=== PATIENT | female | born 1990 | race Two or more races ===

== ENCOUNTER 2016-08-11 15:31 | Emergency (ER) | payer MEDICAID ==
[~2016-08-11] VITALS: Ht 162.6 cm; Wt 72.6 kg
[2016-08-11 15:41] VITALS: BP 144/94
[2016-08-11 17:44] LABS: Urine Bilirubin Negative (Negative); Urine Blood Negative /uL (Negative); Urine Color Yellow (Yellow); Urine Glucose Normal (Normal); Urine Ketone Negative (Negative); Urine Nitrite Negative (Negative); Urine RBC <1 /hpf (0 - 4); Urine Squamous Epithelial Cell FEW /hpf (<5); Urine Urobilinogen Normal (Negative)
[2016-08-11 20:32] LABS: Basophils # (auto) 0 uL; Basophils % (auto) 0.2 % (0.0-2.0); CONDITION AutoValidated; Eosinophils # (auto) 0.1 uL; Eosinophils % (auto) 0.8 % (0.0-7.0); Hematocrit 37.3 % (36.0-46.0); Hemoglobin 12.3 g/dL (12.2-16.2); Lymphocytes # (auto) 1.1 uL; Lymphocytes % (auto) 12.8 % (10.0-50.0); Mean Corpuscular Hemoglobin 28.9 pg (28.0-32.0); Mean Corpuscular Volume 87.5 fL (80.0-100.0); Mean Platelet Volume 11.5 fL (7.4-10.4); Monocytes # (auto) 0.7 uL; Monocytes % (auto) 7.5 % (0.0-12.0); Neutrophils # (auto) 7.1 uL; Neutrophils % (auto) 78.7 % (37.0-80.0); Platelet Count (auto) 174 10^3/uL (140-450); Red Cell Distribution Width 13.6 % (11.6-16.0); SUSPECT SEE PRINTOUT
[2016-08-11 21:09] LABS: BUN/Creatinine Ratio 9.4; Bilirubin, Total 0.2 mg/dL (0.2-1.0); Calcium 8.4 mg/dL (8.5-10.1); Total Protein 6.7 g/dL (6.4-8.2)
[2016-08-11 21:44] LABS: Giant Platelets Few; Platelet Estimate Adequate
== END 2016-08-12 00:05 | disposition left against medical advice (07) ==
LOC: ER 15:36
DX: O26.891 Other specified pregnancy related conditions, first trimester (principal); R10.30 Lower abdominal pain, unspecified; Z3A.13 13 weeks gestation of pregnancy; Z53.21 Procedure and treatment not carried out due to patient leaving prior to being seen by health care provider
CPT/HCPCS: 36415; 76801; 80053; 81001; 84702; 85025

== ENCOUNTER 2022-12-23 12:38 | Emergency (ER) | payer MEDICAID ==
[~2022-12-23] VITALS: Ht 162.6 cm; Wt 82.2 kg
[2022-12-23 13:36] VITALS: BP 152/96; PULSE 98; RESP 18; TEMP 98.4; O2SAT 100
[2022-12-23 13:42] LABS: Basophils # (auto) 0.1 10 ^3/uL (0-0.2); Basophils % (auto) 0.6 % (0.0-2.0); Eosinophils # (auto) 0.2 10 ^3/uL (0-0.8); Eosinophils % (auto) 2.2 % (0.0-7.0); Hematocrit 38.5 % (36.0-46.0); Hemoglobin 12.5 g/dL (12.2-16.2); Lymphocytes # (auto) 1.8 10 ^3/uL (0.4-5.4); Mean Corpuscular Hemoglobin 28.1 pg (28.0-32.0); Mean Corpuscular Hgb Conc. 32.5 g/dL (32.0-36.0); Mean Corpuscular Volume 86.2 fL (80.0-100.0); Monocytes # (auto) 0.8 10 ^3/uL (0-1.3); Monocytes % (auto) 9.2 % (0.0-12.0); Neutrophils # (auto) 6.2 10 ^3/uL (1.6-8.6); Red Blood Cells 4.47 10^6/uL (4.0-5.20); Red Cell Distribution Width 14.2 % (11.8-14.3); White Blood Cell 9.1 10^3/uL (4.4-10.8)
[2022-12-23 13:46] LABS: Alanine Aminotransferase 15 U/L (7-40); Albumin 4.2 g/dL (3.2-4.8); Alkaline Phosphatase 56 U/L (46-116); Anion Gap 6 (5-15); Aspartate Aminotransferase 12 U/L (13-40); BUN/Creatinine Ratio 12.5 (10.0-20.0); Blood Urea Nitrogen 9 mg/dL (9-23); Calcium 8.7 mg/dL (8.5-10.1); Carbon Dioxide 26 mmol/L (20-30); Chloride 105 mmol/L (98-107); Glucose 81 mg/dL (74-106); Potassium 3.9 mmol/L (3.5-5.1); Sodium 137 mmol/L (136-145)
[2022-12-23 13:47] LABS: Bilirubin, Total 0.3 mg/dL (0.2-1.0); Total Protein 7.1 g/dL (5.7-8.2)
[2022-12-23 14:09] LABS: Urine Bacteria NONE SEEN /hpf (None Seen); Urine Blood Negative /uL (Negative); Urine Clarity HAZY (Clear); Urine Color Yellow (Yellow); Urine Mucus FEW (None Seen); Urine Protein, UAD TRACE (Negative); Urine Specific Gravity 1.026 (1.001-1.035); Urine Urobilinogen Normal (Negative); Urine WBC 29 /hpf (0 - 5); Urine pH 5.5 (5.0-8.0)
[2022-12-23 15:45] LABS: INR 0.97 (0.9-1.15); Prothrombin Time 10.2 sec (9.3-11.8)
== END 2022-12-23 15:43 | disposition left against medical advice (07) ==
LOC: ER 12:38
DX: O00.80 Other ectopic pregnancy without intrauterine pregnancy (principal); R10.2 Pelvic and perineal pain; O08.83 Urinary tract infection following an ectopic and molar pregnancy; N39.0 Urinary tract infection, site not specified; Z3A.01 Less than 8 weeks gestation of pregnancy
CPT/HCPCS: 36415; 76801; 80053; 81001; 84702; 85025; 85610; 86850; 86900; 86901

== ENCOUNTER 2022-12-25 08:34 | Inpatient (IN) | payer MEDICAID ==
[~2022-12-25] VITALS: Ht 162.6 cm; Wt 88.2 kg
[2022-12-25 09:09] VITALS: PULSE 94; RESP 12; O2SAT 97
[2022-12-25 09:11] LABS: Basophils # (auto) 0.1 10 ^3/uL (0-0.2); Basophils % (auto) 0.6 % (0.0-2.0); Eosinophils # (auto) 0.2 10 ^3/uL (0-0.8); Eosinophils % (auto) 2.5 % (0.0-7.0); Hematocrit 37.4 % (36.0-46.0); Hemoglobin 11.9 g/dL (12.2-16.2); Lymphocytes # (auto) 1.4 10 ^3/uL (0.4-5.4); Lymphocytes % (auto) 16.4 % (10.0-50.0); Mean Corpuscular Hemoglobin 27.3 pg (28.0-32.0); Mean Corpuscular Hgb Conc. 31.8 g/dL (32.0-36.0); Mean Corpuscular Volume 85.8 fL (80.0-100.0); Monocytes # (auto) 0.8 10 ^3/uL (0-1.3); Monocytes % (auto) 9.9 % (0.0-12.0); Neutrophils % (auto) 70.6 % (37.0-80.0); Red Blood Cells 4.36 10^6/uL (4.0-5.20); Red Cell Distribution Width 14.5 % (11.8-14.3); White Blood Cell 8.5 10^3/uL (4.4-10.8)
[2022-12-25 09:29] LABS: Alanine Aminotransferase 23 U/L (7-40); Alkaline Phosphatase 57 U/L (46-116); Anion Gap 6 (5-15); Aspartate Aminotransferase 16 U/L (13-40); BUN/Creatinine Ratio 18.9 (10.0-20.0); Bilirubin, Total 0.5 mg/dL (0.2-1.0); Blood Urea Nitrogen 14 mg/dL (9-23); Calcium 8.8 mg/dL (8.5-10.1); Carbon Dioxide 24 mmol/L (20-30); Chloride 107 mmol/L (98-107); Glucose 97 mg/dL (74-106); Potassium 3.7 mmol/L (3.5-5.1); Sodium 137 mmol/L (136-145); Total Protein 6.6 g/dL (5.7-8.2)
[2022-12-25] MEDS ORDERED: cefTRIAXone 1GM/50ML D5W 50 ML IV ONE ×2 (09:45→09:51)
[2022-12-25 09:56] LABS: Urine Bacteria FEW /hpf (None Seen); Urine Blood 1+ /uL (Negative); Urine Clarity CLOUDY (Clear); Urine Color Yellow (Yellow); Urine Mucus FEW (None Seen); Urine Protein, UAD 1+ (Negative); Urine Specific Gravity 1.025 (1.001-1.035); Urine Sperm PRESENT /hpf (None Seen); Urine Urobilinogen Normal (Negative); Urine WBC 554 /hpf (0 - 5); Urine WBC Clumps PRESENT /hpf (None Seen)
[2022-12-25 09:57] LABS: INR 0.99 (0.9-1.15); Prothrombin Time 10.4 sec (9.3-11.8)
[2022-12-25] MEDS ORDERED: AZITHROMYCIN 500MG/ 250ML 250 ML IV ONE (10:00)
[2022-12-25] MEDS ORDERED: ONDANSETRON HCL 4 MG/2 ML VIAL IV PRN ×3 (10:15→11:15)
[2022-12-25] MEDS ORDERED: MEPERIDINE HCL (25 MG/ML) 1ML VIAL IV PRN (10:15)
[2022-12-25] MEDS ORDERED: METOCLOPRAMIDE HCL 5MG/ml INJ 2ml VIAL IV PRN (10:15)
[2022-12-25] MEDS ORDERED: SUCCINYLCHOLINE CHLORIDE 20 MG/ML 10ML VIAL IV ONE (10:20)
[2022-12-25] MEDS ORDERED: MEPERIDINE HCL (25 MG/ML) 1ML VIAL ONE (10:21)
[2022-12-25] MEDS ORDERED: fentaNYL CITRATE 100 MCG/2 ML VL ONE (10:23)
[2022-12-25] MEDS ORDERED: HYDROcodone-ACET 5/325MG TAB PO PRN (10:30)
[2022-12-25] MEDS ORDERED: ROCURONIUM 10MG/ML 10ML VIAL IV ONE (10:48)
[2022-12-25] MEDS ORDERED: ONDANSETRON HCL 4 MG/2 ML VIAL ONE (10:49)
[2022-12-25] MEDS ORDERED: DexAMETHasone SOD PHOS 10MG/1ML VIAL INJ ONE (10:49)
[2022-12-25] MEDS ORDERED: BUPIVACAINE 0.5% P/F INJ 10 ML VIAL ONE (11:08)
[2022-12-25] MEDS ORDERED: SUGAMMADEX 200mg/2ml Vial (100MG/ML) IV ONE (11:19)
[2022-12-25 11:48] VITALS: O2SAT 97
[2022-12-25] MEDS: HYDROmorphone HCL 2 MG/ML VL/or syr IV PRN ×7 (12:07→21:56)
[2022-12-25] MEDS ORDERED: ACETAMINOPHEN IV 1000 MG/100ML (10MG/ML) IV ONE (12:15)
[2022-12-25 13:44] VITALS: BP 149/85; PULSE 85; RESP 14; O2SAT 96
[2022-12-25] MEDS: LACTATED RINGER'S 1,000 ML IV SCH ×2 (15:04→17:55)
[2022-12-25] MEDS: SODIUM CHLORIDE 0.9% 1,000 ML IV SCH ×2 (15:04→18:39)
[2022-12-25 17:00] VITALS: BP 131/74; PULSE 96; RESP 18; TEMP 97.2; O2SAT 97
[2022-12-25] MEDS: ceFAZolin 1GM/50ML 50 ML IV SCH ×2 (17:01→21:58)
[2022-12-25] MEDS ORDERED: HYDR-4902 PO (17:15)
[2022-12-25] MEDS ORDERED: DOCU-94 PO (17:15)
[2022-12-25 20:20] LABS: Basophils # (auto) 0 10 ^3/uL (0-0.2); Basophils % (auto) 0.1 % (0.0-2.0); Eosinophils # (auto) 0 10 ^3/uL (0-0.8); Hematocrit 35.6 % (36.0-46.0); Hemoglobin 11.4 g/dL (12.2-16.2); Lymphocytes # (auto) 0.6 10 ^3/uL (0.4-5.4); Lymphocytes % (auto) 3.6 % (10.0-50.0); Mean Corpuscular Hemoglobin 27.8 pg (28.0-32.0); Mean Corpuscular Hgb Conc. 32.2 g/dL (32.0-36.0); Mean Corpuscular Volume 86.6 fL (80.0-100.0); Monocytes # (auto) 0.3 10 ^3/uL (0-1.3); Monocytes % (auto) 1.9 % (0.0-12.0); Neutrophils # (auto) 16.3 10 ^3/uL (1.6-8.6); Neutrophils % (auto) 94.4 % (37.0-80.0); Red Blood Cells 4.11 10^6/uL (4.0-5.20); Red Cell Distribution Width 14.3 % (11.8-14.3); White Blood Cell 17.2 10^3/uL (4.4-10.8)
[2022-12-25 22:00] VITALS: BP_SYST 140; BP_SYST 154; BP_DIAS 77; BP_DIAS 91; PULSE 51; PULSE 92; RESP 16; TEMP 98; TEMP 98.1; O2SAT 100; O2SAT 99
[2022-12-26] MEDS: LACTATED RINGER'S 1,000 ML IV SCH ×4 (00:35→21:02)
[2022-12-26] MEDS: SODIUM CHLORIDE 0.9% 1,000 ML IV SCH ×3 (03:13→19:50)
[2022-12-26 05:00] VITALS: BP 131/67; PULSE 84; RESP 16; TEMP 98.3; O2SAT 98
[2022-12-26] MEDS: ceFAZolin 1GM/50ML 50 ML IV SCH ×3 (05:29→21:30)
[2022-12-26] MEDS: ACETAMINOPHEN 325 MG TAB PO PRN ×2 (05:30→14:21)
[2022-12-26 06:25] LABS: Basophils # (auto) 0 10 ^3/uL (0-0.2); Basophils % (auto) 0.2 % (0.0-2.0); Eosinophils # (auto) 0 10 ^3/uL (0-0.8); Eosinophils % (auto) 0.1 % (0.0-7.0); Hematocrit 33.5 % (36.0-46.0); Hemoglobin 10.6 g/dL (12.2-16.2); Lymphocytes # (auto) 1.4 10 ^3/uL (0.4-5.4); Lymphocytes % (auto) 8.3 % (10.0-50.0); Mean Corpuscular Hemoglobin 27.4 pg (28.0-32.0); Mean Corpuscular Hgb Conc. 31.6 g/dL (32.0-36.0); Mean Corpuscular Volume 86.7 fL (80.0-100.0); Monocytes # (auto) 1.3 10 ^3/uL (0-1.3); Neutrophils # (auto) 13.8 10 ^3/uL (1.6-8.6); Neutrophils % (auto) 83.4 % (37.0-80.0); Nucleated Red Blood Cells % 0.1 %; Red Blood Cells 3.86 10^6/uL (4.0-5.20); Red Cell Distribution Width 14.1 % (11.8-14.3); White Blood Cell 16.6 10^3/uL (4.4-10.8)
[2022-12-26 06:31] LABS: Alanine Aminotransferase 39 U/L (7-40); Albumin 3.6 g/dL (3.2-4.8); Alkaline Phosphatase 63 U/L (46-116); Anion Gap 8 (5-15); Aspartate Aminotransferase 44 U/L (13-40); BUN/Creatinine Ratio 16.4 (10.0-20.0); Bilirubin, Total 0.5 mg/dL (0.2-1.0); Blood Urea Nitrogen 11 mg/dL (9-23); Carbon Dioxide 22 mmol/L (20-30); Chloride 105 mmol/L (98-107); Glucose 97 mg/dL (74-106); Potassium 4.1 mmol/L (3.5-5.1); Sodium 135 mmol/L (136-145)
[2022-12-26] MEDS ORDERED: DOCUSATE SOD 100 MG CAP PO PRN (07:15)
[2022-12-26] MEDS ORDERED: RHO (D) IMMUNE GLOBULIN 300 MCG INJ IM PRN (07:15)
[2022-12-26] MEDS ORDERED: BISACODYL 10 MG RECT SUPP PR PRN (07:15)
[2022-12-26] MEDS ORDERED: HYDROcodone-ACET 10/325MG TAB PO PRN (07:15)
[2022-12-26 08:00] VITALS: BP 136/65; PULSE 91; RESP 20; TEMP 98; O2SAT 98
[2022-12-26] MEDS ORDERED: MORPHINE SULFATE INJ 2 MG/ml SYRG IV PRN (10:15)
[2022-12-26 12:33] VITALS: BP 138/67; PULSE 88; RESP 20; TEMP 97.9; O2SAT 97
[2022-12-26] MEDS: DOCUSATE CALCIUM 240 MG CAP PO SCH (14:14)
[2022-12-26] MEDS: SIMETHICONE 80 MG CHEWABLE TABLET PO SCH ×3 (14:14→21:30)
[2022-12-26 16:41] VITALS: BP 131/75; PULSE 70; RESP 21; TEMP 98.2; O2SAT 96
[2022-12-26 22:00] VITALS: BP 130/66; PULSE 88; RESP 16; TEMP 98.5; O2SAT 98
[2022-12-26] MEDS ORDERED: SODIUM CHLORIDE 0.9% 1,000 ML IV SCH (22:15)
[2022-12-27] MEDS: HYDROcodone-ACET 5/325MG TAB PO PRN ×2 (01:54→06:05)
[2022-12-27 05:00] VITALS: BP 140/85; PULSE 75; RESP 16; TEMP 97.1; O2SAT 97
[2022-12-27 05:46] LABS: Alanine Aminotransferase 25 U/L (7-40); Albumin 3.5 g/dL (3.2-4.8); Alkaline Phosphatase 55 U/L (46-116); Anion Gap 5 (5-15); Aspartate Aminotransferase 31 U/L (13-40); BUN/Creatinine Ratio 9.5 (10.0-20.0); Bilirubin, Total 0.2 mg/dL (0.2-1.0); Blood Urea Nitrogen 7 mg/dL (9-23); Carbon Dioxide 25 mmol/L (20-30); Chloride 107 mmol/L (98-107); Glucose 105 mg/dL (74-106); Potassium 3.5 mmol/L (3.5-5.1); Sodium 137 mmol/L (136-145)
[2022-12-27] MEDS: SIMETHICONE 80 MG CHEWABLE TABLET PO SCH (06:05)
[2022-12-27] MEDS: ceFAZolin 1GM/50ML 50 ML IV SCH (06:05)
[2022-12-27 07:06] LABS: CMV IgG Antibody >10.00 U/mL (0.00-0.59); CMV IgM Antibody <30.0 AU/mL (0.0-29.9)
[2022-12-27 08:54] VITALS: BP 147/91; PULSE 88; RESP 20; TEMP 98.5; O2SAT 96
[2022-12-27] MEDS: DOCUSATE CALCIUM 240 MG CAP PO SCH (09:39)
[2022-12-27 09:45] VITALS: BP 147/91; PULSE 65; RESP 20; TEMP 36.9; O2SAT 96
== END 2022-12-27 10:55 | disposition home or self-care (01) | DRG 547 ==
LOC: ER 08:34 → OVERFLOW 10:24 → CENTRAL 13:06
PROVIDERS: ADMIT Nurse Practitioner Family; ATTEND Nurse Practitioner Acute Care
PROC: 0DCW0ZZ Extirpation of Matter from Peritoneum, Open Approach (ICD-10-PCS; 2022-12-25)
PROC: 10T20ZZ Resection of Products of Conception, Ectopic, Open Approach (ICD-10-PCS; principal; 2022-12-25 10:40)
DX: O00.202 Left ovarian pregnancy without intrauterine pregnancy (principal); A41.9 Sepsis, unspecified organism; K66.1 Hemoperitoneum; O08.83 Urinary tract infection following an ectopic and molar pregnancy; O08.82 Sepsis following ectopic and molar pregnancy; N30.00 Acute cystitis without hematuria; O16.1 Unspecified maternal hypertension, first trimester; O99.011 Anemia complicating pregnancy, first trimester; Z3A.01 Less than 8 weeks gestation of pregnancy
CPT/HCPCS: 36415; 80053; 81001; 84702; 85025; 85610; 85730; 86644; 86645; 86850; 86900; 86901; 96365; 99291; G0378; J0131; J0330; J0690; J0696; J1100; J2405; J3490

== ENCOUNTER 2023-01-23 15:44 | Emergency (ER) | payer MEDICAID ==
[~2023-01-23] VITALS: Ht 160 cm; Wt 77.6 kg
[~2023-01-23 15:44] MED LIST: DOCU-94 PO; HYDR-4902 PO
[2023-01-23 16:15] VITALS: BP 149/93; PULSE 105; RESP 18; O2SAT 95
[2023-01-23 17:09] LABS: Basophils # (auto) 0 10 ^3/uL (0-0.2); Basophils % (auto) 0.6 % (0.0-2.0); Eosinophils # (auto) 0.3 10 ^3/uL (0-0.8); Eosinophils % (auto) 4.8 % (0.0-7.0); Hematocrit 44.2 % (36.0-46.0); Hemoglobin 14.4 g/dL (12.2-16.2); Lymphocytes # (auto) 1.6 10 ^3/uL (0.4-5.4); Lymphocytes % (auto) 26.7 % (10.0-50.0); Mean Corpuscular Hemoglobin 28.1 pg (28.0-32.0); Mean Corpuscular Hgb Conc. 32.5 g/dL (32.0-36.0); Mean Corpuscular Volume 86.3 fL (80.0-100.0); Monocytes # (auto) 0.7 10 ^3/uL (0-1.3); Monocytes % (auto) 11.1 % (0.0-12.0); Neutrophils # (auto) 3.4 10 ^3/uL (1.6-8.6); Neutrophils % (auto) 56.8 % (37.0-80.0); Nucleated Red Blood Cells % 0.1 %; Red Blood Cells 5.12 10^6/uL (4.0-5.20); Red Cell Distribution Width 14.6 % (11.8-14.3); White Blood Cell 5.9 10^3/uL (4.4-10.8)
[2023-01-23 17:14] LABS: INR 0.94 (0.9-1.15); Partial Thromboplastin Time 27.5 SEC (24.5-34.5); Prothrombin Time 9.9 sec (9.3-11.8)
[2023-01-23 17:27] LABS: Alanine Aminotransferase 25 U/L (7-40); Albumin 4.4 g/dL (3.2-4.8); Alkaline Phosphatase 71 U/L (46-116); Anion Gap 7 (5-15); Aspartate Aminotransferase 28 U/L (13-40); BUN/Creatinine Ratio 9.4 (10.0-20.0); Blood Urea Nitrogen 8 mg/dL (9-23); Calcium 9.2 mg/dL (8.5-10.1); Carbon Dioxide 27 mmol/L (20-30); Chloride 104 mmol/L (98-107); Glucose 95 mg/dL (74-106); Sodium 138 mmol/L (136-145)
[2023-01-23 17:28] LABS: Bilirubin, Total < 0.2 mg/dL (0.2-1.0); Total Protein 7.7 g/dL (5.7-8.2)
[2023-01-23 17:36] LABS: Urine Bacteria NONE SEEN /hpf (None Seen); Urine Blood Negative /uL (Negative); Urine Clarity HAZY (Clear); Urine Color Yellow (Yellow); Urine Mucus FEW (None Seen); Urine Protein, UAD 1+ (Negative); Urine Specific Gravity 1.032 (1.001-1.035); Urine WBC 21 /hpf (0 - 5)
[2023-01-23] MEDS ORDERED: DexAMETHasone SOD PHOS 10MG/1ML VIAL INJ IV ONE (18:30)
[2023-01-23] MEDS ORDERED: AMPICILLIN & SULBACTAM SODIUM 3 GM in SODIUM CHL 0.9% 100 ML IV ONE (18:30)
[2023-01-23] MEDS ORDERED: NEOMYCIN-BACITRACIN-POLYM UNITDOSE PKG TOP OINT TOP ONE (18:30)
[2023-01-23] MEDS ORDERED: TRIO1TP EX (18:34)
[2023-01-23] MEDS ORDERED: MUPI2OIN2 EX (18:34)
[2023-01-23] MEDS ORDERED: BACDST PO (18:34)
[2023-01-23] MEDS ORDERED: CEPH500C PO (18:34)
== END 2023-01-24 01:23 | disposition home or self-care (01) ==
LOC: ER 15:44
DX: T81.49XA Infection following a procedure, other surgical site, initial encounter (principal); N39.0 Urinary tract infection, site not specified; L30.9 Dermatitis, unspecified; I10 Essential (primary) hypertension; Z98.890 Other specified postprocedural states; Z79.899 Other long term (current) drug therapy; Z86.2 Personal history of diseases of the blood and blood-forming organs and certain disorders involving the immune mechanism; Y92.89 Other specified places as the place of occurrence of the external cause
CPT/HCPCS: 36415; 80053; 81001; 83605; 85025; 85610; 85730; 87040

== ENCOUNTER 2023-07-13 15:15 | Emergency (ER) | payer MEDICAID ==
[~2023-07-13] VITALS: Ht 160 cm; Wt 77.2 kg
[~2023-07-13 15:15] MED LIST changes: +BACDST PO; +CEPH500C PO; +MUPI2OIN2 EX; +TRIO1TP EX
[2023-07-13] MEDS: HYDROmorphone HCL 2 MG/ML VL/or syr IV ONE (15:30)
[2023-07-13] MEDS: SODIUM CHLORIDE 0.9% 1,000 ML IVB ONE (15:30)
[2023-07-13] MEDS: PANTOPRAZOLE 40 MG/10 ML VIAL INJ IV ONE (15:30)
[2023-07-13] MEDS: PROCHLORPERAZINE EDISYLATE 5 MG/ML 2ML VIAL IV ONE (15:30)
[2023-07-13 17:01] VITALS: PULSE 76; RESP 17; O2SAT 94
[2023-07-13 17:30] LABS: Eosinophils # (auto) 0.1 10 ^3/uL (0-0.8); Hemoglobin 11.7 g/dL (12.2-16.2); Monocytes # (auto) 0.8 10 ^3/uL (0-1.3); Monocytes % (auto) 7.8 % (0.0-12.0); Neutrophils # (auto) 8.6 10 ^3/uL (1.6-8.6); White Blood Cell 10.4 10^3/uL (4.4-10.8)
[2023-07-13 17:32] LABS: Basophils # (auto) 0.1 10 ^3/uL (0-0.2); Basophils % (auto) 0.5 % (0.0-2.0); Eosinophils % (auto) 0.8 % (0.0-7.0); Hematocrit 36.9 % (36.0-46.0); Lymphocytes # (auto) 0.9 10 ^3/uL (0.4-5.4); Lymphocytes % (auto) 8.3 % (10.0-50.0); Mean Corpuscular Hgb Conc. 31.7 g/dL (32.0-36.0); Mean Corpuscular Volume 85.2 fL (80.0-100.0); Neutrophils % (auto) 82.6 % (37.0-80.0); Nucleated Red Blood Cells % 0.2 %; Red Blood Cells 4.33 10^6/uL (4.0-5.20); Red Cell Distribution Width 14.1 % (11.8-14.3)
[2023-07-13 17:54] LABS: Alanine Aminotransferase 19 U/L (7-40); Albumin 3.6 g/dL (3.2-4.8); Alkaline Phosphatase 67 U/L (46-116); Anion Gap 7 (5-15); Aspartate Aminotransferase 22 U/L (13-40); BUN/Creatinine Ratio 23.6 (10.0-20.0); Bilirubin, Total 0.3 mg/dL (0.2-1.0); Blood Urea Nitrogen 17 mg/dL (9-23); Calcium 8.2 mg/dL (8.7-10.4); Carbon Dioxide 22 mmol/L (20-30); Chloride 111 mmol/L (98-107); Glucose 118 mg/dL (74-106); Lipase 28 U/L (12-53); Potassium 3.6 mmol/L (3.5-5.1); Sodium 140 mmol/L (136-145); Total Protein 6.4 g/dL (5.7-8.2)
[2023-07-13] MEDS ORDERED: ZOFR4T PO (19:31)
[2023-07-13] MEDS ORDERED: PANT40TA2 PO (19:31)
[2023-07-13 19:50] VITALS: BP 130/83; RESP 18; TEMP 97.9
== END 2023-07-13 19:58 | disposition home or self-care (01) ==
LOC: ER 15:15
DX: K29.00 Acute gastritis without bleeding (principal); R10.2 Pelvic and perineal pain; I10 Essential (primary) hypertension; Z98.890 Other specified postprocedural states; Z79.899 Other long term (current) drug therapy
CPT/HCPCS: 36415; 76705; 80053; 83690; 84702; 85025; 96361; 96374; 96375; 99285; C9113; J0780; J1170; J7030